=== PATIENT | male | born 1995 | race Caucasian/White ===

== ENCOUNTER 2020-10-26 04:05 | Emergency (ER) | payer BC, MEDICAID ==
[~2020-10-26] VITALS: Ht 172.7 cm; Wt 77.1 kg
--- NOTE | 2020-10-26 04:16 | NUR ---
pt bibself c/o fatigue, headache, behind the knee pain and left sided rib and chest pain x1 week. Pt aaox4 breathing evenly and unlabored. Pt skin is warm, dry, and intact. Pt attached to monitor and pox. Md at bedside. Pt given blanket and call light within reach.
--- NOTE | 2020-10-26 04:18 | NUR ---
blood obtained and sent to lab
--- NOTE | 2020-10-26 04:20 | NUR ---
xray at bedside
[2020-10-26] MEDS ORDERED: KETOROLAC TROMETHAMINE INJ 30 MG/ML VIAL ONE (04:24)
[2020-10-26] MEDS ORDERED: KETOROLAC TROMETHAMINE INJ 30 MG/ML VIAL IV ONE (04:30)
[2020-10-26] MEDS ORDERED: IV NS 0.9% 1,000 ML BAG IV ONE (04:30)
[2020-10-26 04:47] LABS: BASOPHILS # (AUTO) 0.1 /CMM (0.0-0.2); BASOPHILS % (AUTO) 0.7 % (0.0-2.0); EOSINOPHILS % (AUTO) 2.7 % (0.0-6.0); HEMATOCRIT 46 % (39-51); HEMOGLOBIN 15.7 g/dL (13.5-17.5); LYMPHOCYTES # (AUTO) 2.4 /CMM (0.8-4.8); LYMPHOCYTES % (AUTO) 31.8 % (20.0-44.0); MEAN CORPUSCULAR HGB CONC 34 g/dl (31.0-36.0); MEAN CORPUSCULAR VOLUME 94 fL (80-96); MONOCYTES # (AUTO) 0.5 /CMM (0.1-1.30); NEUTROPHILS # (AUTO) 4.3 /CMM (1.8-8.9); NEUTROPHILS % (AUTO) 57.8 % (43.0-81.0); PLATELET COUNT (AUTO) 253 /CMM (150-450); RED BLOOD CELL COUNT(AUTO) 4.94 MIL/uL (4.5-6.0); WHITE BLOOD COUNT (AUTO) 7.4 K/uL (4.3-11.0)
[2020-10-26 05:00] LABS: CALCIUM, SERUM 9.3 mg/dL (8.5-10.1); CARBON DIOXIDE 28 mmol/L (21-32); CHLORIDE 103 mmol/L (98-107); CREATININE 1.1 mg/dL (0.6-1.3); GLUCOSE 105 mg/dL (74-106); POTASSIUM 3.8 mmol/L (3.5-5.1); SODIUM SERUM 141 mmol/L (136-145); UREA NITROGEN, BLOOD 22 mg/dL (7-18)
[2020-10-26 05:09] LABS: D-DIMER 0.55 mg/L(FEU (0.17-0.50)
[2020-10-26] MEDS ORDERED: IOHEXOL-350 100 ML VIAL IV ONE (05:32)
--- NOTE | 2020-10-26 05:45 | NUR ---
pt taken to radiology
[2020-10-26] MEDS ORDERED: IBUP-1957 PO (05:54)
--- NOTE | 2020-10-26 06:40 | NUR ---
Patient discharged to home in stable condition. Written and verbal after care instructions given. Patient verbalizes understanding of instruction. IV removed. Catheter intact and site benign. Pressure and 4x4 applied to site. No bleeding noted.Pt ambulatory with a steady gait
[2020-10-26 06:44] VITALS: BP 127/88
== END 2020-10-26 06:43 | disposition home or self-care (01) ==
LOC: ER 04:09
DX: R07.89 Other chest pain (principal); M79.662 Pain in left lower leg; R51.9 Headache, unspecified; Z60.2 Problems related to living alone
CPT/HCPCS: 36415; 71045; 71275; 80048; 84484; 85025; 85378; 85730; 93005; 93971; 96361; 96374; 99285; J1885; J7030; Q9967

== ENCOUNTER 2020-10-27 12:26 | Emergency (ER) | payer BC, MEDICAID ==
[~2020-10-27] VITALS: Ht 170.2 cm; Wt 70.3 kg
[~2020-10-27 12:26] MED LIST: IBUP-1957 PO
--- NOTE | 2020-10-27 12:26 | NUR ---
PT BIB SELF C/O CHEST PAIN SINCE WEDNESDAY. PT IS AAOX4, NOT IN RESPIRATORY DISTRESS, HOOKED TO RETORT FEEDER GROUND BONE, KEPT RESTED AND COMFORTABLE. WILL CONTINUE TO MONITOR.
--- NOTE | 2020-10-27 12:53 | NUR ---
SEEN AND EXAMINED BY .
--- NOTE | 2020-10-27 13:00 | NUR ---
ER PHLEB AT BEDSIDE FOR BLOOD DRAW.
[2020-10-27 13:18] LABS: BASOPHILS % (AUTO) 0.8 % (0.0-2.0); EOSINOPHILS % (AUTO) 3.7 % (0.0-6.0); HEMATOCRIT 45 % (39-51); LYMPHOCYTES # (AUTO) 1.4 /CMM (0.8-4.8); LYMPHOCYTES % (AUTO) 28.2 % (20.0-44.0); MEAN CORPUSCULAR HGB CONC 34 g/dl (31.0-36.0); MEAN CORPUSCULAR VOLUME 94 fL (80-96); MONOCYTES # (AUTO) 0.3 /CMM (0.1-1.30); MONOCYTES % (AUTO) 6.7 % (2.0-12.0); NEUTROPHILS % (AUTO) 60.6 % (43.0-81.0); PLATELET COUNT (AUTO) 226 /CMM (150-450); RED BLOOD CELL COUNT(AUTO) 4.73 MIL/uL (4.5-6.0); WHITE BLOOD COUNT (AUTO) 4.9 K/uL (4.3-11.0)
[2020-10-27 13:34] LABS: CALCIUM, SERUM 9.1 mg/dL (8.5-10.1); CARBON DIOXIDE 26 mmol/L (21-32); CHLORIDE 104 mmol/L (98-107); GLUCOSE 89 mg/dL (74-106); POTASSIUM 4.2 mmol/L (3.5-5.1); SODIUM SERUM 139 mmol/L (136-145); UREA NITROGEN, BLOOD 17 mg/dL (7-18)
[2020-10-27 14:14] VITALS: BP 125/81
--- NOTE | 2020-10-27 14:14 | NUR ---
Patient discharged to home in stable condition. Written and verbal after care instructions given. Patient verbalizes understanding of instruction.
== END 2020-10-27 14:19 | disposition home or self-care (01) ==
LOC: ER 12:34
DX: R07.89 Other chest pain (principal); Z60.2 Problems related to living alone; Z79.899 Other long term (current) drug therapy
CPT/HCPCS: 36415; 71045-TC; 80048-TC; 84484-TC; 85025-TC; 85378-TC